=== PATIENT | female | born 1985 | race Caucasian/White ===

== ENCOUNTER 2018-08-10 18:26 | Emergency (ER) | END 2018-08-10 21:14 | disposition home or self-care (01) ==

== ENCOUNTER 2018-08-11 17:05 | Emergency (ER) | END 2018-08-11 21:41 | disposition home or self-care (01) ==

== ENCOUNTER 2019-05-05 18:17 | Emergency (ER) | payer MEDICARE ==
[~2019-05-05] VITALS: Ht 160 cm; Wt 126.1 kg
[~2019-05-05 18:17] MED LIST: AMOX1TAB10 PO; DOXY-214 PO; HYDR-4011 PO; IBUP-1542 PO
[2019-05-05 18:33] VITALS: Ht 160 cm; Wt 126.1 kg
[2019-05-05] MEDS ORDERED: KETOROLAC 30 MG INJ IM STA (20:05)
[2019-05-05 22:43] VITALS: BP 168/78; PULSE 89; RESP 18
[2019-05-05] MEDS ORDERED: CEFTRIAXONE 250 MG INJ IM ONE (23:00)
== END 2019-05-05 22:51 | disposition home or self-care (01) ==
LOC: FTE 18:17
DX: R10.2 Pelvic and perineal pain (principal)
CPT/HCPCS: 76830; 76856; 81001; 81025; 84703; 96372; 99285; J0696; J1885; 81003